=== PATIENT | female | born 1965 | race Caucasian/White ===

== ENCOUNTER → 2016-03-24 | Outpatient (CLI) | payer BC | LOC: RAD 18:07 | PROVIDERS: ATTEND Family Medicine | DX: R05 Cough (principal) | CPT/HCPCS: 71020 ==

== ENCOUNTER → 2016-04-14 | Outpatient (CLI) | payer OTHER, BC | LOC: RAD 09:16 | PROVIDERS: ATTEND Family Medicine | DX: M25.571 Pain in right ankle and joints of right foot (principal); S82.491A Other fracture of shaft of right fibula, initial encounter for closed fracture; X58.XXXA Exposure to other specified factors, initial encounter | CPT/HCPCS: 73610 ==

== ENCOUNTER → 2016-05-23 | Outpatient (CLI) | payer OTHER, BC ==
[~2016-05-23] MED LIST: LORA10TA7 PO; OMEP20CA12 PO
--- NOTE | 2016-05-23 10:06 | Diagnostic Imaging Report ---
INDICATION: Right ankle pain with history of previous fracture. Comparison with 04/14/2016. FINDINGS: The oblique distal fibular fracture previously reported has shown considerable healing. Fracture line is still faintly visible. Overall alignment is good. Ankle mortise appears in good position. Soft tissue swelling has resolved. Talar dome shows no cortical defects. IMPRESSION: Normal-appearing healing of the distal fibular fracture which is in good alignment. Dictated by: Dictated on workstation # [id number]
== END ==
LOC: RAD 09:16
PROVIDERS: ATTEND Family Medicine
DX: M25.571 Pain in right ankle and joints of right foot (principal); S82.491D Other fracture of shaft of right fibula, subsequent encounter for closed fracture with routine healing; X58.XXXD Exposure to other specified factors, subsequent encounter
CPT/HCPCS: 73610